=== PATIENT | male | born 1940 | race Caucasian/White ===

== ENCOUNTER 2020-02-16 11:18 | Inpatient (IN) | payer MEDICARE, BC ==
[~2020-02-16] VITALS: Ht 172.7 cm; Wt 78.6 kg
[2020-02-16] VITALS (7 sets, daily range): BP systolic 121–160; BP diastolic 65–94
--- NOTE | 2020-02-16 08:30 | NUR ---
The patient, LENARD SANCHEZ, 79 y/o, M admitted by RICHARD MENDES MD, was given written information regarding hospital policies, unit procedures, and contact persons. Pt was oriented to room. Valuables were checked and belongings left with patient. Pt ambulated to ICU bed 1, direct admit from Dr Mendes for Palpitations, dizziness and SOB. VSS at the time of arrival.
[2020-02-16] MEDS ORDERED: ACETAMINOPHEN 325 MG TABLET PO PRN (11:45)
[2020-02-16] MEDS ORDERED: ONDANSETRON PF 4 MG/2 ML VIAL. IVP PRN (11:45)
[2020-02-16 12:11] LABS: BASO # 0.1 x10^3/uL (0.0-0.2); BASO % 1 % (0-3); EOS # 0.2 x10^3/uL (0.0-0.7); EOS % 2 % (0-3); HEMATOCRIT 49.1 % (39.0-53.0); HEMOGLOBIN 16.7 g/dL (13.0-17.5); LYMPH # 1.3 x10^3/uL (1.0-4.8); LYMPH % 16 % (24-48); MEAN CORPUSCULAR HEMOGLOBIN 31 pg (25-35); MEAN CORPUSCULAR HGB CONC 34 g/dL (31-37); MEAN CORPUSCULAR VOLUME 92 fL (79-100); MONO # 0.6 x10^3/uL (0.0-1.1); MONO % 7 % (0-9); NEUT # 6.3 x10^3uL (1.8-7.7); NEUT % 74 % (31-73); PLATELET COUNT 286 x10^3/uL (140-400); RED BLOOD COUNT 5.35 x10^6/uL (4.30-5.70); RED CELL DISTRIBUTION WIDTH 13.7 % (11.5-14.5); WHITE BLOOD COUNT 8.5 x10^3/uL (4.0-11.0)
[2020-02-16 12:17] LABS: CALCIUM 9.5 mg/dL (8.5-10.1); CREATININE 1.1 mg/dL (0.7-1.3); GFR 64.9; MAGNESIUM 2.1 mg/dL (1.8-2.4); TOTAL BILIRUBIN 0.6 mg/dL (0.2-1.0); TOTAL PROTEIN 7.9 g/dL (6.4-8.2)
[2020-02-16] MEDS ORDERED: VALS40TA2 PO (13:09)
[2020-02-16] MEDS ORDERED: IOHEXOL 350 MG/ML 100 ML VIAL. IV ONE (13:15)
--- NOTE | 2020-02-16 14:06 | RAD ---
CT ANGIOGRAPHY CHEST INDICATION: shortness of breath with exertion Comparison: None. TECHNIQUE: Following the uneventful administration of intravenous contrast, 100 cc Omnipaque 350, axial CT sections were obtained through the lungs and upper abdomen. Multiplanar reconstructions and MIP images were obtained. PQRS compliance statement: One or more of the following individualized dose reduction techniques were utilized for this examination: 1. Automated exposure control 2. Adjustment of the mA and/or kV according to patient size 3. Use of iterative reconstruction technique FINDINGS: Pulmonary arteries: No evidence of pulmonary thromboembolic disease. Lungs and Airways: No pulmonary mass or consolidation. No abnormality of the central airways. Pleura: The pleural spaces are normal. Heart and Mediastinum: The visualized thyroid is normal in size and attenuation. No axillary or supraclavicular lymphadenopathy. No mediastinal, hilar or retrocrural lymphadenopathy. Normal cardiac size. No pericardial effusion. Coronary artery atherosclerotic disease. Normal caliber thoracic aorta. Abdomen: Limited images through the upper abdomen show no abnormality of the visualized organs. Bones and Soft Tissues: Degenerative changes of the spine. IMPRESSION: 1. No evidence of pulmonary thromboembolic disease. 2. No pulmonary mass or consolidation. 3. Coronary artery atherosclerotic disease. Electronically signed by: Hernan Cody MD (02/16/2020 2:03 PM) [id number]
--- NOTE | 2020-02-16 17:51 | CARD ---
MR#: [id number] Date of Study: 02/16/2020 Ordering Physician: RICHARD MENDES, Referring Physician: RICHARD MENDES, Tech: Luana Houston JAMIE APPROVED REPORT EXAM: Two-dimensional and M-mode echocardiogram with Doppler and color Doppler. Other Information Quality : Good INDICATION Palpitations Dyspnea 2D DIMENSIONS RVDd3.7 (2.9-3.5cm)Left Atrium(2D)3.8 (1.6-4.0cm) IVSd1.1 (0.7-1.1cm)Aortic Root(2D)3.8 (2.0-3.7cm) LVDd4.1 (3.9-5.9cm)PWd1.1 (0.7-1.1cm) LVDs2.4 (2.5-4.0cm)FS (%) 30.0 % SV54.7 mlLVEF(%)60.0 (>50%) Aortic Valve AoV Peak Xavi.101.5cm/sAoV VTI18.4cm AO Peak GR.4.1mmHgAO Mean GR.2mmHg KELSIE (VTI)3.87zb0GH P 1/2 Byrv711ea Mitral Valve MV E Qinxsxnm29.3cm/sMV DECEL HPWU511qh MV A Buqcqyxx21.4cm/sE/A Ratio0.6 Tricuspid Valve TR P. Ilwgxcim821so/sRAP YDAOQVJD2paZw TR Peak Gr.14pzMfQOJY78nqCw LEFT VENTRICLE The left ventricle is normal size. There is normal left ventricular wall thickness. The left ventricu lar systolic function is normal and the ejection fraction is within normal range. The Ejection Fracti on is 55-60%. Septal motion consistent with conduction abnormality. Transmitral Doppler flow pattern is Grade I-abnormal relaxation pattern. RIGHT VENTRICLE The right ventricle is normal size. The right ventricular systolic function is normal. ATRIA The left atrium size is normal. The right atrium size is normal. The interatrial septum is intact wit h no evidence for an atrial septal defect or patent foramen ovale as noted on 2-D or Doppler imaging. AORTIC VALVE The aortic valve is calcified but opens well. Doppler and Color Flow revealed mild aortic regurgitati on. There is no significant aortic valvular stenosis. MITRAL VALVE The mitral valve is calcified but opens well. There is no evidence of mitral valve prolapse. There is no mitral valve stenosis. Doppler and Color-flow revealed trace mitral regurgitation. TRICUSPID VALVE The tricuspid valve is normal in structure and function. Doppler and Color Flow revealed trace to mil d tricuspid regurgitation. The PA pressure was estimated at 26 mmHg. There is no tricuspid valve sten osis. PULMONIC VALVE The pulmonic valve is not well visualized. Doppler and Color Flow revealed no pulmonic valvular regur gitation. There is no pulmonic valvular stenosis. GREAT VESSELS The aortic root is mildly enlarged. The ascending aorta is mildly dilated at 3.5 cm. The IVC is awais l in size and collapses >50% with inspiration. PERICARDIAL EFFUSION There is no evidence of significant pericardial effusion. Critical Notification Critical Value: No <Conclusion> The left ventricle is normal size. The left ventricular systolic function is normal and the ejection fraction is within normal range. The Ejection Fraction is 55-60%. Doppler and Color Flow revealed mild aortic regurgitation. There is no significant aortic valvular stenosis. Doppler and Color-flow revealed trace mitral regurgitation. Doppler and Color Flow revealed trace to mild tricuspid regurgitation. The PA pressure was estimated at 26 mmHg. The ascending aorta is mildly dilated at 3.5 cm. Signed by : Cristofer Ambriz MD Electronically Approved : 02/16/2020 17:51:13
[2020-02-16] MEDS ORDERED: ACETAMINOPHEN 500 MG TABLET PO PRN (18:15)
[2020-02-16] MEDS ORDERED: ZOLPIDEM 5 MG TABLET. PO PRN (18:15)
[2020-02-17 03:00] VITALS: BP 118/67
[2020-02-17 07:00] VITALS: BP 129/79
[2020-02-17] MEDS ORDERED: LOSARTAN 25 MG TABLET. PO SCH (09:00)
[2020-02-17 10:54] VITALS: BP 129/79
[2020-02-17] MEDS ORDERED: LEXAPRO10 MG PO (11:49)
--- NOTE | 2020-02-17 11:55 | DS ---
DATE OF DISCHARGE: HOSPITAL COURSE: The patient is a 79-year-old male who has been coming in with panic attacks, feels lightheaded, short of breath. The patient came in through the office, was admitted for further evaluation and treatment. The patient was admitted and placed on a rule out [place] protocol and was seen by Cardiology as well. The patient was noted to have an echocardiogram, which was within range. Cardiac enzymes were negative. T4 was 7.2. His coag was 0.51, so he had a CTA performed, which showed no evidence of pulmonary emboli, no pulmonary mass or consolidation, but he did have coronary artery atherosclerotic disease. The rest of his labs were pretty much unremarkable. Chemistries were unremarkable. Glucose slightly elevated at 103, but the troponins were negative. The patient made excellent progress during the rest of his hospitalization. He was discharged home on his home medications, would probably start him on a mild antidepressant for his anxiety as well as apparently still with grieving over the loss of his son about a year ago. IMPRESSION: Therefore, dyspnea, lightheadedness, anxiety attacks, essential hypertension, slight elevation of D-dimer. The patient will be discharged home, followed up as an outpatient. Ejection fraction 55-60%. RICHARD MENDES MD DR: KATHY/yayo JOB#: [id number] / [id number]
--- NOTE | 2020-02-17 12:45 | NUR ---
PT'S IV D/C AND PAPERWORK SIGNED AND MEDICATIONS REVIEWED WITH PATIENT. PT ATE LUNCH HERE AND WALKED OUT TO THE CAR WHERE HIS BROTHER PICKED HIM UP.
--- NOTE | 2020-02-17 16:36 | PDOC2 ---
CONSULT DOS: DATE: 02/17/20 TIME: 16:30 Reason for Consult: Shortness of breath Referring Physician: Dr. Dawson Chief Complaint Shortness of breath Source: Chart review, Patient History of Present Illness The patient is a 79-year-old male who was admitted from his primary's office due to episodes of increasing shortness of breath. The patient ruled out for myocardial infarction and was initially treated with diuresis with good effect. Echocardiogram showed normal left ventricular systolic function and no significant valvular abnormalities. When seen this morning the patient was gradually increasing his activities and felt significantly better. Cardiovascular: CHF, HTN Past Surgical History: No pertinent history Family History: Hypertension Smoke: No Current Medications Current Medications Acetaminophen (Tylenol) 650 mg PRN Q6HRS PRN PO Headaches, Temp > 101.5F; Start 02/16/20 at 11:45; Stop 02/17/20 at 13:47; Status DC Ondansetron HCl (Zofran) 4 mg PRN Q8HRS PRN IVP NAUSEA/VOMITING; Start 02/16/20 at 11:45; Stop 02/17/20 at 13:47; Status DC Iohexol (Omnipaque 350 Mg/ml) 100 ml 1X ONCE IV Last administered on 02/16/20at 13:27; Start 02/16/20 at 13:15; Stop 02/16/20 at 13:17; Status DC Losartan Potassium (Cozaar) 25 mg DAILY PO Last administered on 02/17/20at 08:09; Start 02/17/20 at 09:00; Stop 02/17/20 at 13:47; Status DC Zolpidem Tartrate (Ambien) 5 mg PRN QHS PRN PO INSOMNIA, MAY REPEAT IN 1HR; Start 02/16/20 at 18:15; Stop 02/17/20 at 13:47; Status DC Acetaminophen (Tylenol) 500 mg PRN Q6HRS PRN PO MILD PAIN / TEMP > 100.3'F; Start 02/16/20 at 18:15; Stop 02/17/20 at 13:47; Status DC Active Scripts Active Lexapro (Escitalopram Oxalate) 10 Mg Tablet 1 Tab PO DAILY 30 Days Reported Diovan (Valsartan) 40 Mg Tablet 1 Tab PO DAILY Allergies: Coded Allergies: No Known Drug Allergies (Unverified , 02/16/20) General: YES: Fatigue Respiratory: YES: Shortness of breath, SOB with excertion General: No acute distress HEENT: Atraumatic Lungs: Clear to auscultation Heart: Regular rate Abdomen: Normal bowel sounds VITALS Vital Signs Date Time Temp Pulse Resp B/P (MAP) Pulse Ox O2 Delivery O2 Flow Rate FiO2 02/17/20 10:54 69 20 129/79 (96) 96 Room Air 02/17/20 07:00 97.6 02/16/20 20:00 92.0 Labs Laboratory Tests Test 02/16/20 11:50 02/16/20 18:45 02/16/20 23:07 White Blood Count 8.5 x10^3/uL (4.0-11.0) Red Blood Count 5.35 x10^6/uL (4.30-5.70) Hemoglobin 16.7 g/dL (13.0-17.5) Hematocrit 49.1 % (39.0-53.0) Mean Corpuscular Volume 92 fL (79-100) Mean Corpuscular Hemoglobin 31 pg (25-35) Mean Corpuscular Hemoglobin Concent 34 g/dL (31-37) Red Cell Distribution Width 13.7 % (11.5-14.5) Platelet Count 286 x10^3/uL (140-400) Neutrophils (%) (Auto) 74 % (31-73) Lymphocytes (%) (Auto) 16 % (24-48) Monocytes (%) (Auto) 7 % (0-9) Eosinophils (%) (Auto) 2 % (0-3) Basophils (%) (Auto) 1 % (0-3) Neutrophils # (Auto) 6.3 x10^3uL (1.8-7.7) Lymphocytes # (Auto) 1.3 x10^3/uL (1.0-4.8) Monocytes # (Auto) 0.6 x10^3/uL (0.0-1.1) Eosinophils # (Auto) 0.2 x10^3/uL (0.0-0.7) Basophils # (Auto) 0.1 x10^3/uL (0.0-0.2) D-Dimer (Beckie) 0.51 mg/L (0.00-0.50) Sodium Level 139 mmol/L (136-145) Potassium Level 4.0 mmol/L (3.5-5.1) Chloride Level 103 mmol/L (98-107) Carbon Dioxide Level 29 mmol/L (21-32) Anion Gap 7 (6-14) Blood Urea Nitrogen 15 mg/dL (8-26) Creatinine 1.1 mg/dL (0.7-1.3) Estimated GFR (Cockcroft-Gault) 64.9 BUN/Creatinine Ratio 14 (6-20) Glucose Level 103 mg/dL (70-99) Lactic Acid Level 1.1 mmol/L (0.4-2.0) Calcium Level 9.5 mg/dL (8.5-10.1) Magnesium Level 2.1 mg/dL (1.8-2.4) Total Bilirubin 0.6 mg/dL (0.2-1.0) Aspartate Amino Transf (AST/SGOT) 20 U/L (15-37) Alanine Aminotransferase (ALT/SGPT) 31 U/L (16-63) Alkaline Phosphatase 75 U/L (46-116) Creatine Kinase 105 U/L (39-308) Troponin I Quantitative < 0.017 ng/mL (0-0.055) < 0.017 ng/mL (0-0.055) < 0.017 ng/mL (0-0.055) Total Protein 7.9 g/dL (6.4-8.2) Albumin 4.0 g/dL (3.4-5.0) Albumin/Globulin Ratio 1.0 (1.0-1.7) Thyroid Stimulating Hormone (TSH) 4.715 uIU/mL (0.358-3.740) Thyroxine (T4) 7.2 ug/dL (4.5-12.0) Images 1. Heart failure. Improved. Echo with intact LV systolic function. Has responded well to diuresis. Increasing activities today. Probable discharge later today. 2. No acute EKG changes. Troponin normal x3. Increasing activities. 3. Hypertension. Now controlled. We will continue present treatment. Thank you for allowing us to participate in the care of your patient. LENARD SCHAFER MD Feb 17, 2020 16:36
--- NOTE | 2020-02-19 06:17 | EKG ---
[address] [address] Test Date: 2020-02-16 Test Time: 12:03:03 Pat Name: LENARD SANCHEZ Department: Room: [facility]01 1 Gender: M Infant Room Teacher: : 1940 Requested By: RICHARD MENDES Order Number: [id number] Reading MD: Measurements Intervals [place] Rate: 65 P: 49 IN: 178 QRS: -66 QRSD: 114 T: 56 QT: 370 QTc: 385 Interpretive Statements SINUS RHYTHM ABNORMAL LEFT AXIS DEVIATION R-S TRANSITION ZONE IN V LEADS DISPLACED TO THE LEFT LEFT ANTERIOR FASCICULAR BLOCK LEFT VENTRICULAR HYPERTROPHY QRS(T) CONTOUR ABNORMALITY CONSIDER ANTEROSEPTAL MYOCARDIAL DAMAGE ABNORMAL ECG RI6.01 No previous ECG available for comparison
== END 2020-02-17 12:45 | disposition home or self-care (01) | DRG 303 ==
LOC: ICU 11:18
PROVIDERS: ADMIT Family Medicine; ATTEND Family Medicine
DX: I25.10 Atherosclerotic heart disease of native coronary artery without angina pectoris (principal); F41.0 Panic disorder [episodic paroxysmal anxiety]; F41.1 Generalized anxiety disorder; I11.0 Hypertensive heart disease with heart failure; I50.9 Heart failure, unspecified; Z82.49 Family history of ischemic heart disease and other diseases of the circulatory system; F41.9 Anxiety disorder, unspecified
CPT/HCPCS: 36415; 71275; 80053; 82550; 83605; 83735; 84436; 84443; 84484; 85025; 85379; 93005; 93306; Q9967